=== PATIENT | male | born 1975 | race Caucasian/White ===

== ENCOUNTER 2019-02-06 00:33 | Emergency (ER) | payer SELFPAY ==
[2019-02-06] MEDS ORDERED: ASPIRIN 81 MG TABLET, CHEWABLE PO ONE (00:54)
--- NOTE | 2019-02-06 00:59 | ER Document Report ---
HPI - HPI Patient complains to provider of: chest pain Onset: Just prior to arrival Severity: Moderate Pain Level: 3 Context: 43-year-old morbidly obese middle-aged male with the listed past medical history here for multiple complaints to include bilateral lower extremity cramping, worse on the left side that started around 7 PM today. States he started with the cramping in his lower extremities and then he had some left-sided chest pain and cramping in his left arm. States he then felt briefly dizzy and nauseous and had a headache. He states the headache has since resolved and not returned. not worst temple of life. has had similar temple before in the past. denies sudden onset. He also had a cough for several days. He states his legs have also swollen for the last several days as well. He states the left leg is more swollen than right. No history of this before. No history of CHF. No dyspnea on exertion, orthopnea, or paroxysmal nocturnal dyspnea. He is not on any blood thinners. No fall or trauma. He is able to walk. He is not on any diuretics. 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 He is a smoker. Denies prior cardiac history. [facility]CP [facility] however he has not followed up with them yet and has an initial appointment in 6 days. He does see [facility] for his chronic low back pain left-sided sciatica. He also has chronic neuropathy which he takes baclofen and Neurontin for. He is on Percocet 10 mg 4 times daily. He states he still has these. He has never had this pain or symptoms before. He never had a stress test or heart catheterization. Pt denies any prior personal cardiac history. denies any family history of sudden or cardiac dz at a young age. no syncope. no palpitations. no hx of mi, cva, tia, CHF, or cad. no ripping or tearing sensation. No prior history of blood clots. No recent surgery, exogenous hormone use, hemoptysis, or history of cancer. No prior history of arrhythmias. he hasn't take anything for his sx. no other complaints at this time. - ROS Systems Reviewed and Negative: Yes All other systems reviewed and negative - To include 10 systems, unless mentioned in the hpi. <JAYCEE MICHAELS - Last Filed: 02/06/19 07:42> <RYAN MANN - Last Filed: 02/06/19 08:51> - HPI Time Seen by Provider: 02/06/19 00:52 Past Medical History - General Information source: Patient, Relative - Social History Smoking Status: Current Every Day Smoker Frequency of alcohol use: None Drug Abuse: None Lives with: Family Family History: Hypertension Patient has suicidal ideation: No Patient has homicidal ideation: No - Past Medical History Cardiac Medical History: Denies: Hx Atrial Fibrillation, Hx Congestive Heart Failure, Hx Coronary Artery Disease, Hx DVT, Hx Hypercholesterolemia, Hx Pulmonary Embolism Pulmonary Medical History: Denies: Hx Asthma, Hx Sleep Apnea Neurological Medical History: Denies: Hx Seizures Endocrine Medical History: Denies: Hx Diabetes Mellitus Type 1, Hx Diabetes Mellitus Type 2, Hx Hypothyroidism Renal/ Medical History: Reports: Hx Benign Prostatic Hyperplasia. Denies: Hx Kidney Stones Musculoskeletal Medical History: Reports Hx Arthritis, Reports Other - Chronic back pain on pain management - Immunizations Immunizations up to date: Yes <XENIAJAYCEE - Last Filed: 02/06/19 07:42> Vertical Provider Document - CONSTITUTIONAL Agree With Documented VS: Yes Exam Limitations: No Limitations General Appearance: No Apparent Distress Notes: >>>> PHYSICAL_EXAM: GENERAL_APPEARANCE: well_nourished, alert, cooperative, no_acute_distress, no_obvious_discomfort. pleasant, obese middle aged white male, smiling, speaking in full sentences, in no sign of pain or resp distress, smells strongly of cigarette smoke, at bedside VITALS: reviewed, see vital signs table. HEAD: no_swelling\tenderness on the head. normocephalic. atraumatic. no petit signs. no raccoons eyes. EYES: PERRL, EOMI, conjunctiva_clear. NOSE: no_nasal_discharge. MOUTH: (-)decreased moisture. THROAT: no_tonsilar_inflammation, no_airway_obstruction. no_lymphadenopathy NECK: supple, no_neck_tenderness, full rom. full strength. no meningeal signs. BACK: no midline back_tenderness. no step offs or deformities. CHEST_WALL: no_chest_tenderness. no overlying skin changes LUNGS: mild diffuse coarse breath sounds, worse mid-lower lung gallardo,(-)accessory muscle use, good air exchange bilateral. HEART: normal_rate, normal_rhythm, ABDOMEN: normal_BS, soft, no_abd_tenderness, (-)guarding, (-)rebound, no distension or peritoneal signs. no cva ttp EXTREMITIES: strength 5/5 in all_extremities, good pulses in all_extremities, no other swelling\tenderness in the extremities, pos 1+ pitting_edema bilat, L>R. full rom. normal gait. good pulses. brisk cap refill. 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 questionably positive Robyn sign on the left. neg robyn sign on the right. no sign of septic joint. no sign of gout. no overlying skin changes otherwise. NEURO: motor and sensation intact, cranial nerves 2-12 intact, cerebellar fxn intact SKIN: warm, dry, good_color, no_rash. MENTAL_STATUS: speech_clear, oriented_X_3, normal_affect, responds_appropriately to questions. - INFECTION CONTROL TRAVEL OUTSIDE OF THE [place] IN LAST 30 DAYS: No <JAYCEE MICHAELS - Last Filed: 02/06/19 07:42> Course - Re-evaluation Re-evalutation: 02/06/19 03:07 Pt here for some left-sided chest pain, bilateral leg cramping worse on the left along with bilateral leg swelling that is greater on the left. His labs were unremarkable other than a slightly elevated d-dimer and a mild leukocytosis. delta trop neg. ekg unremarkable per dr aquino. Chest x-ray showed some atelectasis but was otherwise negative for anything acute per radiology and reviewed by myself. His left knee x-ray showed some chronic arthritic changes but was otherwise negative for anything acute per radiology and reviewed by myself. He responded well to medications given. he is a chronic low back pain and sciatica pt on pain management but states these sx are different from his usual. He remained neuro nonfocal. No sign of cauda equina, spinal cord involvement, or central cord syndrome. Secondary to his d-dimer being elevated I did get a CTA of his chest which was negative per radiology and reviewed by myself. He was informed that the hospital only has a stage technician available to do Doppler ultrasounds starting at 7:30 AM. The patient did agree to stay until the tech could come in and perform an ultrasound of his legs since he does have asymmetric bilateral leg edema and an elevate d-dimer. Patient will be signed out to the oncoming [facility] at the end of my shift at 8am pending doppler US results for final dispo. Please refer to their note for final dispo after the patient undergoes his ultrasound to rule out DVT. vss. pt informed of findings. pt understands and agrees to plan. heart score is a: 2. On reexam, pt improved with tx listed. remained stable. nontoxic. well appearing. pain controlled. tolerating po. requesting to go home. neurononfocal. normal O2 sats on ra. lung sounds improved after tx here. case discussed with ER Attending, Dr. aquino, who directed and agrees with plan of care and advised no further workup indicated at this time and pt is stable for dc home with close f/u with pcp/specialist. Documentation achieved through voice recording which may lead to some occasional accidental typographical errors. Extensive efforts have been made to proof read documentation to make sure these are the least as possible. Category Date Time Status Doppler [VENOUS UNILATERAL LOWER] [CARDIO] Stat Cardiology 02/06/19 01:19 Ordered Continuous Cardiac Monitoring (ED) CONTINUOUS Care 02/06/19 00:54 Active EKG Documentation STAT Care 02/06/19 00:35 Completed Orthostatic Vital Sign (ED) NOW Care 02/06/19 01:19 Completed Oxygen (ED) Nasal Cannula 2 lpm Care 02/06/19 00:54 Active Pulse Oximeter Continuous (ED) CONTINUOUS Care 02/06/19 00:54 Active Saline Lock (ED) NOW Care 02/06/19 00:54 Active CHEST 2 VIEWS [RAD] Stat Exams 02/06/19 00:54 Completed CTA CHEST [CT] Stat Exams 02/06/19 03:00 Completed KNEE LEFT 4 VIEW [RAD] Stat Exams 02/06/19 01:20 Completed BNP (In-House) [NT PRO BNP] [CHEM] Stat Lab 02/06/19 00:55 Completed CBC WITH DIFF [HEME] Stat Lab 02/06/19 00:55 Completed COMPREHENSIVE METABOLIC PANEL [CHEM] Stat Lab 02/06/19 00:55 Completed CREATINE KINASE MB [CHEM] Stat Lab 02/06/19 00:55 Completed CREATINE KINASE [CHEM] Stat Lab 02/06/19 00:55 Completed D Dimer [D-DIMER] [COAG] Stat Lab 02/06/19 00:55 Completed MAGNESIUM [CHEM] Stat Lab 02/06/19 00:55 Completed PROTHROMBIN TIME/INR [COAG] Stat Lab 02/06/19 00:55 Completed TROPONIN I [CHEM] Stat Lab 02/06/19 00:55 Completed TROPONIN I [CHEM] Stat Lab 02/06/19 05:00 Completed UA [URINALYSIS] [URIN] Stat Lab 02/06/19 02:25 Completed Aspirin [Aspirin 81 mg Chewable Tablet] Med 02/06/19 00:54 Discontinued 324 mg PO NOW ONE Baclofen [Baclofen 10 mg Tablet] Med 02/06/19 06:50 Once 10 mg PO NOW ONE Ipratropium/Albuterol Sulfate [Duoneb 3 ml Ampul] Med 02/06/19 01:19 Discontinued 3 ml NEB NOW ONE Ketorolac Tromethamine [Toradol Inj/Pf 30 mg/1 ml Sdv] Med 02/06/19 06:27 Stop Req 30 mg IV NOW ONE Oxycodone HCl [Oxy-Ir 5 mg Tablet] Med 02/06/19 06:49 Once 10 mg PO NOW ONE EKG ER ONLY [ER] Stat Oth 02/06/19 Active Nebulizer Therapy Routine [RESPCARE] NOW Ther 02/06/19 01:19 Active 02/06/19 06:51 02/06/19 06:54 02/06/19 06:56 02/06/19 06:58 02/06/19 07:42 - Vital Signs Vital signs: 02/06/19 03:07 Pulse Pulse Pulse Resp BP BP BP 02/06/19 02:25 126/84 H 02/06/19 02:24 16 02/06/19 02:01 17 145/95 H 02/06/19 02:00 18 02/06/19 01:37 69 80 69 140/88 H 131/96 H 02/06/19 01:36 21 H 131/96 H 02/06/19 01:35 13 02/06/19 01:34 17 140/88 H 02/06/19 01:33 14 02/06/19 01:32 16 139/89 H 02/06/19 01:31 21 H 02/06/19 01:19 16 02/06/19 01:01 17 144/93 H 02/06/19 01:00 18 02/06/19 00:52 11 L 134/87 H 02/06/19 00:51 10 L BP Pulse Ox 02/06/19 02:25 94 02/06/19 02:24 94 02/06/19 02:01 91 L 02/06/19 02:00 92 02/06/19 01:37 139/89 H 02/06/19 01:36 96 02/06/19 01:35 97 02/06/19 01:34 97 02/06/19 01:33 98 02/06/19 01:32 96 02/06/19 01:31 97 02/06/19 01:19 96 02/06/19 01:01 95 02/06/19 01:00 95 02/06/19 00:52 96 02/06/19 00:51 97 - Laboratory Result Diagrams: 02/06/19 00:55 02/06/19 00:55 Laboratory results interpreted by me: 02/06/19 03:02 Labs- Entire Visit 02/06/19 02/06/19 02/06/19 00:55 00:55 00:55 WBC 12.2 H RBC 5.06 Hgb 15.6 Hct 45.2 MCV 90 MCH 30.9 MCHC 34.5 RDW 12.7 Plt Count 219 Lymph % (Auto) 15.9 Coke % (Auto) 5.6 Eos % (Auto) 1.9 Baso % (Auto) 0.3 Absolute Neuts (auto) 9.3 H Absolute Lymphs (auto) 1.9 Absolute Monos (auto) 0.7 Absolute Eos (auto) 0.2 Absolute Basos (auto) 0.0 Seg Neutrophils % 76.3 PT 13.2 INR 1.00 D-Dimer Sodium 135.4 L Potassium 4.0 Chloride 100 Carbon Dioxide 27 Anion Gap 8 BUN 12 Creatinine 1.18 Est GFR ( Amer) > 60 Est GFR (MDRD) Non-Af > 60 Glucose 92 Calcium 8.9 Magnesium Total Bilirubin 0.7 Direct Bilirubin 0.1 Neonat Total Bilirubin Not Reportable Neonat Direct Bilirubin Not Reportable Neonat Indirect Bili Not Reportable AST 29 ALT 24 Alkaline Phosphatase 75 Creatine Kinase 171 H CK-MB (CK-2) Troponin I NT-Pro-B Natriuret Pep Total Protein 6.4 Albumin 4.0 Urine Color Urine Appearance Urine pH Ur Specific [place] Urine Protein Urine Glucose (UA) Urine Ketones Urine Blood Urine Nitrite Urine Bilirubin Urine Urobilinogen Ur Leukocyte Esterase Urine WBC (Auto) Urine RBC (Auto) Urine Ascorbic Acid 02/06/19 02/06/19 02/06/19 00:55 00:55 00:55 WBC RBC Hgb Hct MCV MCH MCHC RDW Plt Count Lymph % (Auto) Coke % (Auto) Eos % (Auto) Baso % (Auto) Absolute Neuts (auto) Absolute Lymphs (auto) Absolute Monos (auto) Absolute Eos (auto) Absolute Basos (auto) Seg Neutrophils % PT INR D-Dimer Sodium Potassium Chloride Carbon Dioxide Anion Gap BUN Creatinine Est GFR ( Amer) Est GFR (MDRD) Non-Af Glucose Calcium Magnesium 2.0 Total Bilirubin Direct Bilirubin Neonat Total Bilirubin Neonat Direct Bilirubin Neonat Indirect Bili AST ALT Alkaline Phosphatase Creatine Kinase CK-MB (CK-2) 1.75 Troponin I < 0.012 NT-Pro-B Natriuret Pep 65 Total Protein Albumin Urine Color Urine Appearance Urine pH Ur Specific [place] Urine Protein Urine Glucose (UA) Urine Ketones Urine Blood Urine Nitrite Urine Bilirubin Urine Urobilinogen Ur Leukocyte Esterase Urine WBC (Auto) Urine RBC (Auto) Urine Ascorbic Acid 02/06/19 02/06/19 00:55 02:25 WBC RBC Hgb Hct MCV MCH MCHC RDW Plt Count Lymph % (Auto) Coke % (Auto) Eos % (Auto) Baso % (Auto) Absolute Neuts (auto) Absolute Lymphs (auto) Absolute Monos (auto) Absolute Eos (auto) Absolute Basos (auto) Seg Neutrophils % PT INR D-Dimer 0.78 H Sodium Potassium Chloride Carbon Dioxide Anion Gap BUN Creatinine Est GFR ( Amer) Est GFR (MDRD) Non-Af Glucose Calcium Magnesium Total Bilirubin Direct Bilirubin Neonat Total Bilirubin Neonat Direct Bilirubin Neonat Indirect Bili AST ALT Alkaline Phosphatase Creatine Kinase CK-MB (CK-2) Troponin I NT-Pro-B Natriuret Pep Total Protein Albumin Urine Color YELLOW Urine Appearance CLEAR Urine pH 6.0 Ur Specific [place] 1.008 Urine Protein NEGATIVE Urine Glucose (UA) NEGATIVE Urine Ketones NEGATIVE Urine Blood NEGATIVE Urine Nitrite NEGATIVE Urine Bilirubin NEGATIVE Urine Urobilinogen NEGATIVE Ur Leukocyte Esterase NEGATIVE Urine WBC (Auto) 1 Urine RBC (Auto) 1 Urine Ascorbic Acid NEGATIVE - Diagnostic Test Radiology reviewed: Image reviewed, Reports reviewed Radiology results interpreted by me: 02/06/19 03:02 Chest X-Ray 02/06/19 00:54 IMPRESSION: Mild patchy perihilar and left basilar opacification likely due to atelectasis. Inflammatory changes are not entirely excluded. Knee X-Ray 02/06/19 01:20 IMPRESSION: Osteopenia with degenerative change copyright 2010 [employer]- All Rights Reserved Chest/Abdomen CTA 02/06/19 03:00 IMPRESSION: No acute intrathoracic process TECHNICAL DOCUMENTATION: Quality ID # 436: Final reports with documentation of one or more dose reduction techniques (e.g., Automated exposure control, adjustment of the mA and/or kV according to patient size, use of iterative reconstruction technique) copyright 2010 [employer]- All Rights Reserved 02/06/19 06:58 - EKG Interpretation by Me EKG shows normal: Sinus rhythm Rate: Normal Heart block present: 1st Degree - 71 bpm, no stemi, reviewed by dr aquino When compared to previous EKG there are: Previous EKG unavailable <JAYCEE MICHAELS - Last Filed: 02/06/19 07:42> - Re-evaluation Re-evalutation: 02/06/19 08:04 Received report from KATELYN Manley. Will await ultrasound results. Patient is complaining of a headache. 975 mg of Tylenol has been ordered. 02/06/19 08:20 The time the nurse informed me that the patient would like to leave AGAINST MEDICAL ADVICE. As I was talking to the patient, ultrasound came to bedside and the patient had decided to stay. I told him that I can get his discharge paperwork done and call him with the results. 02/06/19 08:50 Patient's unofficial venous Doppler study is negative at this time. The patient will be discharged at this time. [facility] will [facility] with [facility]. Follow-up precautions were given. Verbal discharge instructions were given to the patient. They verbalized understanding. They are stable for discharge. - Vital Signs Vital signs: Temp Pulse Resp BP Pulse Ox 69 26 H 139/91 H 96 02/06/19 01:37 02/06/19 07:01 02/06/19 07:01 02/06/19 07:01 - Laboratory Result Diagrams: 02/06/19 00:55 02/06/19 00:55 Laboratory results interpreted by me: 02/06/19 02/06/19 02/06/19 00:55 00:55 00:55 WBC 12.2 H Absolute Neuts (auto) 9.3 H D-Dimer 0.78 H Sodium 135.4 L Creatine Kinase 171 H <RYAN MANN - Last Filed: 02/06/19 08:51> Discharge <JAYCEE MICHAELS - Last Filed: 02/06/19 07:42> <RYAN MANN - Last Filed: 02/06/19 08:51> - Discharge Clinical Impression: Peripheral edema, Elevated d-dimer, Tobacco abuse Chest pain Qualifiers: Chest pain type: unspecified Qualified Code(s): R07.9 - Chest pain, unspecified Leukocytosis Qualifiers: Leukocytosis type: unspecified Qualified Code(s): D72.829 - Elevated white blood cell count, unspecified Condition: Good Disposition: HOME, SELF-CARE Additional Instructions: You were seen today in the emergency department for chest pain. You will be called with your ultrasound results. Your other diagnostic studies were normal. Please follow-up with your primary care provider in regards to this visit. If you have worsening chest pain, shortness of breath, difficulty breathing, please return to the emergency department. Forms: Return to Work Referrals: [facility] [Provider Group] - Follow up in 3-5 days
[2019-02-06 01:13] LABS: ABSOLUTE EOSINOPHILS # (AUTO) 0.2 10^3/uL (0.0-0.6); ABSOLUTE LYMPHOCYTES (AUTO) 1.9 10^3/uL (0.5-4.7); ABSOLUTE MONOCYTES (AUTO) 0.7 10^3/uL (0.1-1.4); ABSOLUTE NEUT (AUTO) 9.3 10^3/uL (1.7-8.2); BASOPHILS % (AUTO) 0.3 % (0-2); EOSINOPHILS % (AUTO) 1.9 % (0-6); HEMATOCRIT 45.2 % (37.9-51.0); HEMOGLOBIN 15.6 g/dL (13.5-17.0); LYMPHOCYTES % (AUTO) 15.9 % (13-45); MEAN CORPUSCULAR HEMOGLOBIN 30.9 pg (27.0-33.4); MEAN CORPUSCULAR HGB CONC 34.5 g/dL (32.0-36.0); MEAN CORPUSCULAR VOLUME 90 fl (80-97); MONOCYTES % (AUTO) 5.6 % (3-13); PLATELET COUNT 219 10^3/uL (150-450); RED BLOOD COUNT 5.06 10^6/uL (4.35-5.55); RED CELL DISTRIBUTION WIDTH 12.7 % (11.5-14.0); SEGMENTED NEUTROPHILS % (AUTO) 76.3 % (42-78); TOTAL CELLS COUNTED % (AUTO) 100 %; WHITE BLOOD COUNT 12.2 10^3/uL (4.0-10.5)
[2019-02-06 01:16] LABS: PROTHROMBIN TIME 13.2 SEC (11.4-15.4)
[2019-02-06] MEDS ORDERED: IPRATROPIUM/ALBUTEROL 0.5-2.5 MG/3 ML AMPUL NEB ONE (01:19)
[2019-02-06 01:32] LABS: ALKALINE PHOSPHATASE 75 U/L (38-126); ANION GAP 8 (5-19); ASPARTATE AMINO TRANSFERASE 29 U/L (17-59); BILIRUBIN,DIRECT 0.1 mg/dL (0.0-0.4); BILIRUBIN,TOTAL 0.7 mg/dL (0.2-1.3); BLOOD UREA NITROGEN 12 mg/dL (7-20); CALCIUM 8.9 mg/dL (8.4-10.2); CARBON DIOXIDE 27 mmol/L (22-30); CHLORIDE 100 mmol/L (98-107); CREATINE KINASE 171 U/L (55-170); GLUCOSE 92 mg/dL (75-110); TOTAL PROTEIN 6.4 g/dL (6.3-8.2)
[2019-02-06 02:01] LABS: CREATINE KINASE MB 1.75 ng/mL (<4.55)
[2019-02-06 02:02] LABS: TROPONIN I < 0.012 ng/mL
--- NOTE | 2019-02-06 02:41 | RADIOLOGY REPORT (SQ) ---
EXAM DESCRIPTION: X-ray two view chest. CLINICAL HISTORY: 43 years Male, chest pain COMPARISON: None. TECHNIQUE: PA and Lateral views of the chest performed on 02/06/2019 at 2:32 AM FINDINGS: The lungs are relatively well expanded. There is mild patchy perihilar and left basilar opacification which may be due to atelectasis or inflammatory changes. The costophrenic sulci are clear. There is no evidence of a pneumothorax. The cardiac silhouette is normal in size. The mediastinal contours are normal. No acute osseous abnormalities are identified. No focal soft tissue abnormalities are identified. IMPRESSION: Mild patchy perihilar and left basilar opacification likely due to atelectasis. Inflammatory changes are not entirely excluded.
[2019-02-06 02:47] LABS: APPEARANCE,URINE CLEAR; BILIRUBIN,URINE NEGATIVE (NEGATIVE); COLOR,URINE YELLOW; GLUCOSE, URINE NEGATIVE (NEGATIVE); KETONES,URINE NEGATIVE (NEGATIVE); LEUKOCYTE ESTERASE,URINE NEGATIVE (NEGATIVE); NITRITE,URINE NEGATIVE (NEGATIVE); PROTEIN,URINE NEGATIVE (NEGATIVE); URINE SPECIFIC GRAVITY 1.008; UROBILINOGEN,URINE NEGATIVE mg/dL (<2.0)
--- NOTE | 2019-02-06 03:10 | RADIOLOGY REPORT (SQ) ---
EXAM DESCRIPTION: XR KNEE 4 OR MORE VIEWS COMPLETED DATE/TME: 02/06/2019 01:20 CLINICAL HISTORY: 43 years, Male, left knee pain COMPARISON: None. NUMBER OF VIEWS: 4 TECHNIQUE: 4 views left knee LIMITATIONS: None. FINDINGS: Osteopenia. Negative for acute fracture or dislocation. Tricompartmental degenerative change with tricompartmental narrowing and spur formation. Soft tissues are unremarkable IMPRESSION: Osteopenia with degenerative change copyright 2010 [employer]- All Rights Reserved
--- NOTE | 2019-02-06 04:14 | RADIOLOGY REPORT (SQ) ---
EXAM DESCRIPTION: CT CHEST ANGIOGRAPHY WITHOUT THEN WITH IV CONTRAST COMPLETED DATE/TME: 02/06/2019 03:00 CLINICAL HISTORY: 43 years, Male, cp, sob, edema, elevated d dimer(0.78) COMPARISON: None. TECHNIQUE: 667 Images stored on PACS. All CT scanners at this facility use dose modulation, iterative reconstruction, and/or weight based dosing when appropriate to reduce radiation dose to as low as reasonably achievable (ALARA). Axial images with coronal and sagittal MIPS [facility]: Dose Right [facility]: CareDose [facility]: Dose Right [facility]: Teradose 4D [facility]: [employer] LIMITATIONS: None. FINDINGS: The mediastinal vasculature enhances normally. No intraluminal filling defect to suggest pulmonary embolus. Negative for thoracic aortic aneurysm or dissection. The heart and pericardium are unremarkable. Limited evaluation of the upper abdomen shows a 4 x 2.8 cm cyst in the right hepatic lobe. Osseous structures are grossly intact. No pneumothorax. Airways are patent. Lungs are clear IMPRESSION: No acute intrathoracic process TECHNICAL DOCUMENTATION: Quality ID # 436: Final reports with documentation of one or more dose reduction techniques (e.g., Automated exposure control, adjustment of the mA and/or kV according to patient size, use of iterative reconstruction technique) copyright 2010 [employer] All Rights Reserved
[2019-02-06] MEDS ORDERED: KETOROLAC TROMETHAMINE INJ/PF 30 MG/1 ML SDV IV ONE (06:27)
[2019-02-06] MEDS ORDERED: OXYCODONE HCL IR 5 MG TABLET PO ONE (06:49)
[2019-02-06] MEDS ORDERED: BACLOFEN 10 MG TABLET PO ONE (06:50)
--- NOTE | 2019-02-06 07:18 | EKG REPORT ---
SEVERITY:- ABNORMAL ECG - SINUS RHYTHM FIRST DEGREE AV BLOCK : Confirmed by: Ger Castro MD 06-Feb-2019 07:17:32
[2019-02-06] MEDS ORDERED: ACETAMINOPHEN 325 MG TABLET PO ONE (08:00)
[2019-02-06 08:51] VITALS: BP 142/99
--- NOTE | 2019-02-06 09:41 | RADIOLOGY REPORT (SQ) ---
EXAM DESCRIPTION: VENOUS UNILATERAL LOWER COMPLETED DATE/TIME: 02/06/2019 9:30 am REASON FOR STUDY: left calf pain/swelling COMPARISON: None. TECHNIQUE: Dynamic and static baker scale and color images acquired of the left leg venous system. Se lected spectral images acquired with additional compression and augmentation maneuvers. The contralat eral common femoral vein and saphenofemoral junction were also imaged. Images stored on PACS. LIMITATIONS: None. FINDINGS: COMMON FEMORAL: Normal phasicity, compression and augmentation. No visualized echogenic ma terial on baker scale. No defects on color images. FEMORAL: Normal compression and augmentation. No visualized echogenic material on baker scale. No defe cts on color images. POPLITEAL: Normal compression, augmentation. No visualized echogenic material on baker scale. No defec ts on color images. CALF VESSELS: Normal compression, augmentation. No visualized echogenic material on baker scale. No de fects on color images. GSV and SSV: Normal compression, augmentation. No visualized echogenic material on baker scale. No def ects on color images. ANY DEEP VENOUS INSUFFICIENCY: Not evaluated. ANY EVIDENCE OF POPLITEAL CYST: No. OTHER: No other significant finding. CONTRALATERAL COMMON FEMORAL VEIN AND SAPHENOFEMORAL JUNCTION: Normal phasicity, compression and augmentation. No visualized echogenic material on baker scale. No de fects on color images. IMPRESSION: No evidence of DVT or SVT within the left lower extremity. TECHNICAL DOCUMENTATION: JOB ID: [id number] [employer]- All Rights Reserved Reading location - IP/workstation name: [email or web address]
== END 2019-02-06 08:51 | disposition home or self-care (01) ==
LOC: ER 00:33
DX: R07.9 Chest pain, unspecified (principal); D72.829 Elevated white blood cell count, unspecified; R60.0 Localized edema; R79.1 Abnormal coagulation profile; R25.2 Cramp and spasm; E66.01 Morbid (severe) obesity due to excess calories; R42 Dizziness and giddiness; R11.0 Nausea; Z79.899 Other long term (current) drug therapy; F17.200 Nicotine dependence, unspecified, uncomplicated
CPT/HCPCS: 93005; 36415; 82553; 82550; 83735; 85025; 85610; 80053; 81001; 84484; 85379; 83880; 93971; 71046; 73564; 71275; 93010; J7620; 94640; 99283

== ENCOUNTER → 2019-03-28 | Outpatient (CLI) | payer MEDICAID ==
--- NOTE | 2019-03-28 14:28 | RADIOLOGY REPORT (SQ) ---
EXAM DESCRIPTION: CHEST PA/LATERAL COMPLETED DATE/TIME: 03/28/2019 12:56 pm REASON FOR STUDY: COUGH COMPARISON: 02/06/2019 EXAM PARAMETERS: NUMBER OF VIEWS: two views TECHNIQUE: Digital Frontal and Lateral radiographic views of the chest acquired. RADIATION DOSE: NA LIMITATIONS: none FINDINGS: LUNGS AND PLEURA: No opacities, masses or pneumothorax. No pleural effusion. MEDIASTINUM AND HILAR STRUCTURES: No masses or contour abnormalities. HEART AND VASCULAR STRUCTURES: Heart normal size. No evidence for failure. BONES: No acute findings. HARDWARE: None in the chest. OTHER: No other significant finding. IMPRESSION: NO SIGNIFICANT RADIOGRAPHIC FINDING IN THE CHEST. TECHNICAL DOCUMENTATION: JOB ID: [id number] [employer]- All Rights Reserved Reading location - IP/workstation name: [email or web address]
== END ==
LOC: OD 12:35
PROVIDERS: ATTEND Nurse Practitioner Family
DX: R05 Cough (principal)
CPT/HCPCS: 71046

== ENCOUNTER 2019-04-16 14:33 | Emergency (ER) | payer MEDICAID ==
--- NOTE | 2019-04-16 14:42 | ER Document Report ---
ED Medical Screen (RME) - General Chief Complaint: Flank Pain Stated Complaint: FLANK PAIN Time Seen by Provider: 04/16/19 14:39 Primary Care Provider: KYLIE WALKER NP [Primary Care Provider] - Follow up as needed Mode of Arrival: Ambulatory Information source: Patient Notes: 43-year-old male presented to ED for complaint of right flank pain since last night. He states he has been having very frequent urination since Monday. He states he just urinated about 30 minutes ago and he needs to go again already. He does have a history of kidney stones and last one was 2016. He states he feels like somebody is kicked him in both kidneys at this time. States she smokes between 10 to 14 cigarettes a day denies alcohol or drugs. Pressure is 142/86. He states he does not have a history of blood pressure problems. TRAVEL OUTSIDE OF THE [place] IN LAST 30 DAYS: No - Related Data Allergies/Adverse Reactions: No Known Allergies Allergy (Verified 04/16/19 14:38) Past Medical History - Past Medical History Cardiac Medical History: Denies: Hx Atrial Fibrillation, Hx Congestive Heart Failure, Hx Coronary Artery Disease, Hx DVT, Hx Hypercholesterolemia, Hx Pulmonary Embolism Pulmonary Medical History: Denies: Hx Asthma, Hx Sleep Apnea Neurological Medical History: Denies: Hx Seizures Endocrine Medical History: Denies: Hx Diabetes Mellitus Type 1, Hx Diabetes Mellitus Type 2, Hx Hypothyroidism Renal/ Medical History: Reports: Hx Benign Prostatic Hyperplasia. Denies: Hx Kidney Stones Musculoskeltal Medical History: Reports Hx Arthritis - Immunizations Immunizations up to date: Yes Doctor's Discharge - Discharge Referrals: KYLIE WALKER NP [Primary Care Provider] - Follow up as needed
[2019-04-16] MEDS ORDERED: KETOROLAC TROMETHAMINE 60 MG/2 ML SDV IM ONE (14:43)
[2019-04-16 15:16] LABS: APPEARANCE,URINE CLEAR; BILIRUBIN,URINE NEGATIVE (NEGATIVE); COLOR,URINE YELLOW; GLUCOSE, URINE NEGATIVE (NEGATIVE); KETONES,URINE NEGATIVE (NEGATIVE); PROTEIN,URINE NEGATIVE (NEGATIVE); URINE SPECIFIC GRAVITY 1.013; UROBILINOGEN,URINE NEGATIVE mg/dL (<2.0)
[2019-04-16 15:18] LABS: ABSOLUTE BASOPHILS # (AUTO) 0.1 10^3/uL (0.0-0.2); ABSOLUTE EOSINOPHILS # (AUTO) 0.4 10^3/uL (0.0-0.6); ABSOLUTE LYMPHOCYTES (AUTO) 1.6 10^3/uL (0.5-4.7); ABSOLUTE MONOCYTES (AUTO) 0.6 10^3/uL (0.1-1.4); ABSOLUTE NEUT (AUTO) 7.8 10^3/uL (1.7-8.2); BASOPHILS % (AUTO) 0.9 % (0-2); EOSINOPHILS % (AUTO) 3.4 % (0-6); HEMATOCRIT 52.5 % (37.9-51.0); HEMOGLOBIN 17.9 g/dL (13.5-17.0); LYMPHOCYTES % (AUTO) 15.6 % (13-45); MEAN CORPUSCULAR HEMOGLOBIN 30.9 pg (27.0-33.4); MEAN CORPUSCULAR HGB CONC 34.1 g/dL (32.0-36.0); MEAN CORPUSCULAR VOLUME 91 fl (80-97); MONOCYTES % (AUTO) 5.9 % (3-13); PLATELET COUNT 221 10^3/uL (150-450); RED BLOOD COUNT 5.79 10^6/uL (4.35-5.55); SEGMENTED NEUTROPHILS % (AUTO) 74.2 % (42-78); TOTAL CELLS COUNTED % (AUTO) 100 %; WHITE BLOOD COUNT 10.5 10^3/uL (4.0-10.5)
[2019-04-16 15:30] LABS: ALKALINE PHOSPHATASE 77 U/L (38-126); ANION GAP 7 (5-19); ASPARTATE AMINO TRANSFERASE 26 U/L (17-59); BILIRUBIN,DIRECT 0.1 mg/dL (0.0-0.4); BILIRUBIN,TOTAL 0.7 mg/dL (0.2-1.3); BLOOD UREA NITROGEN 15 mg/dL (7-20); CALCIUM 9.2 mg/dL (8.4-10.2); CARBON DIOXIDE 30 mmol/L (22-30); CHLORIDE 103 mmol/L (98-107); GLUCOSE 82 mg/dL (75-110); POTASSIUM 4.4 mmol/L (3.6-5.0); TOTAL PROTEIN 6.5 g/dL (6.3-8.2)
--- NOTE | 2019-04-16 15:57 | RADIOLOGY REPORT (SQ) ---
EXAM DESCRIPTION: U/S RETROPERITON (RENAL/AORTA) COMPLETED DATE/TIME: 04/16/2019 3:46 pm REASON FOR STUDY: Right flank pain COMPARISON: 02/06/2019. TECHNIQUE: Dynamic and static grayscale images acquired of the kidneys and bladder and recorded on P ACS. Additional selected color Doppler and spectral images recorded. LIMITATIONS: None. FINDINGS: RIGHT KIDNEY: Normal size measuring 11.7 cm. Normal echogenicity. No solid or suspicious m asses. No hydronephrosis. No calcifications. LEFT KIDNEY: Normal size measuring 11.7 cm. Normal echogenicity. No solid or suspicious masses. Mil d fullness of the renal pelvis. No caliceal dilation. 1.3 cm lower pole cyst. Hydronephrosis. No c alcifications. BLADDER: Decompressed. Incompletely evaluated. OTHER FINDINGS: 2.7 cm right hepatic lobe cyst. IMPRESSION: 1. No evidence of hydronephrosis. 2. Small hepatic and left renal cyst. TECHNICAL DOCUMENTATION: JOB ID: [id number] [employer]- All Rights Reserved Reading location - IP/workstation name: [email or web address]
[2019-04-16] MEDS ORDERED: NORMAL SALINE 1000 ML 1,000 ML IV ONE (16:22)
[2019-04-16] MEDS ORDERED: FENTANYL CITRATE INJ/PF 100 MCG/2 ML AMPUL IV ONE (17:27)
--- NOTE | 2019-04-16 17:41 | RADIOLOGY REPORT (SQ) ---
EXAM DESCRIPTION: CT ABD/PELVIS WITH IV ONLY COMPLETED DATE/TIME: 04/16/2019 5:21 pm REASON FOR STUDY: LLQ pain, eval for diverticulitis COMPARISON: CT angio chest 02/06/2019 TECHNIQUE: CT scan of the abdomen and pelvis performed using helical scanning technique with dynamic intravenous contrast injection. No oral contrast. Images reviewed with lung, soft tissue, and bone windows. Reconstructed coronal and sagittal MPR images reviewed. Delayed images for evaluation of the urinary system also acquired. All images stored on PACS. All CT scanners at this facility use dose modulation, iterative reconstruction, and/or weight based d osing when appropriate to reduce radiation dose to as low as reasonably achievable (ALARA). [facility]: Dose Right [facility]: CareDose [facility]: Dose Right [facility]: Teradose 4D [facility]: [employer] CONTRAST TYPE AND DOSE: contrast/concentration: Isovue 350.00 mg/ml; Total Contrast Delivered: 100.0 ml; Total Saline Delivered: 72.0 ml RENAL FUNCTION: Creatinine 0.9 RADIATION DOSE: CT Rad equipment meets quality standard of care and radiation dose reduction techniq ues were employed. CTDIvol: NaN mGy. DLP: 0 mGy-cm.. LIMITATIONS: None. FINDINGS: LOWER CHEST: No significant findings. No nodules or infiltrates. LIVER: Normal size. No masses. No dilated ducts. Benign 3 cm cyst posterior right lobe liver SPLEEN: Normal size. No focal lesions. PANCREAS: No masses. No significant calcifications. No adjacent inflammation or peripancreatic fluid collections. Pancreatic duct not dilated. GALLBLADDER: No identified stones by CT criteria. No inflammatory changes to suggest cholecystitis. ADRENAL GLANDS: No significant masses or asymmetry. RIGHT KIDNEY AND URETER: No solid masses. No significant calcifications. No hydronephrosis or hyd roureter. LEFT KIDNEY AND URETER: No solid masses. 2 cm and 1 cm left midpole renal cortical cyst. No signif icant calcifications. No hydronephrosis or hydroureter. AORTA AND VESSELS: No aneurysm. No dissection. Renal arteries, SMA, celiac without stenosis. RETROPERITONEUM: No retroperitoneal adenopathy, hemorrhage or masses. BOWEL AND PERITONEAL CAVITY: No oral contrast. Scattered colonic diverticuli without CT signs of acu te diverticulitis. In particular, no left lower quadrant inflammatory changes are seen in the ramona lic fat. No CT evidence of bowel obstruction or free intraperitoneal air or fluid. Few jejunal dive rticuli are present without inflammation. APPENDIX: Surgically absent PELVIS: No mass. No free fluid. Normal bladder. ABDOMINAL WALL: No masses. No hernias. BONES: No significant or acute findings. OTHER: No other significant finding. IMPRESSION: Post appendectomy. Colonic and jejunal diverticuli are present without CT signs of inflammation TECHNICAL DOCUMENTATION: JOB ID: [id number] Quality ID # [id number]: Final reports with documentation of one or more dose reduction techniques (e.g., Au tomated exposure control, adjustment of the mA and/or kV according to patient size, use of iterative reconstruction technique) 2010 [employer]- All Rights Reserved Reading location - IP/workstation name: [email or web address]
[2019-04-16] MEDS ORDERED: CIPROFLOXACIN HCL 500 MG TABLET PO ONE (18:28)
[2019-04-16] MEDS ORDERED: METRONIDAZOLE 500 MG TABLET PO ONE (18:28)
[2019-04-16] MEDS ORDERED: HYDROCODONE/ACETAMINOPHEN 5-325 MG (6 TAB/ER DISP) PO PRN (19:14)
[2019-04-16] MEDS ORDERED: ONDANSETRON ODT 4 MG TAB (6 TAB/ER DISP) PO PRN (19:24)
--- NOTE | 2019-04-16 19:31 | ER Document Report ---
Entered by GOLD FAGAN SCRIBE 04/16/19 1616 Acting as scribe for:RYAN HARDIN DO ED GI/ - General Chief Complaint: Flank Pain Stated Complaint: FLANK PAIN Time Seen by Provider: 04/16/19 14:39 Primary Care Provider: KYLIE WALKER NP [Primary Care Provider] - Follow up as needed Mode of Arrival: Ambulatory Information source: Patient Notes: This 43-year-old male patient presents to the emergency department today with complaints of left flank pain with associated left sided abdominal pain, nausea, vomiting, diarrhea, chills, and urinary frequency for the last few days. Patient states he has a history of kidney stones and his symptoms today feel somewhat similar to his previous kidney stones although the worst pain today is in his left lower quadrant which is not like previous kidney stones. Patient states he was treated for a urinary tract infection about 6 months ago at [facility]. Patient mentions that he has a cough but states this has been chronic for the last month and a half. Pertinent PMHx/PSHx: Kidney stones, urinary tract infection - additional PMHx/PSHx not pertinent to this visit as recorded. PCP: Followed by urology at [facility] TRAVEL OUTSIDE OF THE [place] IN LAST 30 DAYS: No - Related Data Allergies/Adverse Reactions: No Known Allergies Allergy (Verified 04/16/19 14:38) Home Medications: gabapentin, oxycodone, baclofen, nexium Past Medical History - General Information source: Patient - Social History Smoking Status: Current Every Day Smoker Cigarette use (# per day): Yes Chew tobacco use (# tins/day): No Frequency of alcohol use: None Drug Abuse: None Lives with: Family Family History: Reviewed & Not Pertinent, Hypertension Patient has suicidal ideation: No Patient has homicidal ideation: No Renal/ Medical History: Reports: Hx Benign Prostatic Hyperplasia, Hx Kidney Stones Musculoskeletal Medical History: Reports Hx Arthritis - Immunizations Immunizations up to date: Yes Review of Systems - Review of Systems Constitutional: See HPI, Chills. denies: Fever EENT: No symptoms reported Cardiovascular: No symptoms reported Respiratory: No symptoms reported Gastrointestinal: See HPI, Abdominal pain, Diarrhea, Nausea, Vomiting Genitourinary: See HPI, Flank pain Male Genitourinary: No symptoms reported Musculoskeletal: No symptoms reported Skin: No symptoms reported Hematologic/Lymphatic: No symptoms reported Neurological/Psychological: No symptoms reported -: Yes All other systems reviewed and negative Physical Exam - Vital signs Vitals: Temp Pulse Resp BP Pulse Ox 98.2 F 84 16 142/86 H 98 04/16/19 14:40 04/16/19 14:40 04/16/19 14:40 04/16/19 14:40 04/16/19 14:40 Course - Vital Signs Vital signs: Temp Pulse Resp BP Pulse Ox 97.8 F 76 20 152/98 H 98 04/16/19 18:07 04/16/19 18:07 04/16/19 18:07 04/16/19 18:07 04/16/19 14:40 - Laboratory Result Diagrams: 04/16/19 14:53 04/16/19 14:53 Laboratory results interpreted by me: 04/16/19 04/16/19 14:53 14:53 RBC 5.79 H Hgb 17.9 H Hct 52.5 H Urine Ascorbic Acid 20 H Discharge - Discharge Clinical Impression: Abdominal pain, Vomiting Condition: Stable Disposition: HOME, SELF-CARE Instructions: Abdominal Pain ([facility]), Vomiting ([facility]), Diverticulitis ([facility]), Low Residue Diet ([facility]) Prescriptions: Ondansetron [Zofran Odt 4 mg Tablet] 1 tab PO Q6HP PRN #15 tab.rapdis PRN Reason: For Nausea/Vomiting Ciprofloxacin HCl [Cipro 500 mg Tablet] 500 mg PO BID #20 tablet Metronidazole [Flagyl 500 mg Tablet] 500 mg PO Q8H #30 tablet Metoclopramide HCl [Reglan 10 mg Tablet] 1 - 2 tab PO ASDIR PRN #25 tablet PRN Reason: Referrals: KYLIE WALKER, CROSSING SUPERVISOR [Primary Care Provider] - Follow up in 3-5 days I personally performed the services described in the documentation, reviewed and edited the documentation which was dictated to the scribe in my presence, and it accurately records my words and actions.
[2019-04-16 20:02] VITALS: BP 145/82
== END 2019-04-16 20:08 | disposition home or self-care (01) ==
LOC: ER 14:33
DX: R10.9 Unspecified abdominal pain (principal); R11.2 Nausea with vomiting, unspecified; R19.7 Diarrhea, unspecified; F17.210 Nicotine dependence, cigarettes, uncomplicated; Z87.442 Personal history of urinary calculi
CPT/HCPCS: 99284; 96372; 96361; 96374; 36415; 83690; 85025; 80053; 81001; 76770; 74177; J3490 ×2; J1885; J3010; J7030

== ENCOUNTER 2019-04-23 21:40 | Emergency (ER) | payer MEDICAID ==
[2019-04-23 22:02] VITALS: BP 134/75
[2019-04-23] MEDS ORDERED: IBUPROFEN 600 MG TABLET PO ONE (22:49)
--- NOTE | 2019-04-23 22:50 | ER Document Report ---
ED Medical Screen (RME) - General Chief Complaint: Fall Stated Complaint: LEFT ARM PAIN Time Seen by Provider: 04/23/19 22:45 Primary Care Provider: KYLIE WALKER NP [Primary Care Provider] - Follow up as needed Notes: Patient is a 43-year-old male who presents emergency department with a chief complaint of left shoulder pain. Patient had lost his balance he was moving a chair and ended up falling on his left shoulder. Patient states that this happened this afternoon. He has not taken any medications to help with the pain. He normally takes oxycodone for chronic back pain. Exam: Edema noted to left posterior shoulder. Tenderness noted to the area. I have greeted and performed a rapid initial assessment of this patient. A comprehensive ED assessment and evaluation of the patient, analysis of test resu lts and completion of medical decision making process will be conducted by an additional ED providers. TRAVEL OUTSIDE OF THE [place] IN LAST 30 DAYS: No - Related Data Allergies/Adverse Reactions: No Known Allergies Allergy (Verified 04/16/19 14:38) Home Medications: neurontin, baclofen, oxycodone, nexium Past Medical History - Social History Frequency of alcohol use: None Drug Abuse: None - Past Medical History Cardiac Medical History: Denies: Hx Atrial Fibrillation, Hx Congestive Heart Failure, Hx Coronary Artery Disease, Hx DVT, Hx Hypercholesterolemia, Hx Pulmonary Embolism Pulmonary Medical History: Denies: Hx Asthma, Hx Sleep Apnea Neurological Medical History: Denies: Hx Seizures Endocrine Medical History: Denies: Hx Diabetes Mellitus Type 1, Hx Diabetes Mellitus Type 2, Hx Hypothyroidism Renal/ Medical History: Reports: Hx Benign Prostatic Hyperplasia, Hx Kidney Stones Musculoskeltal Medical History: Reports Hx Arthritis - Immunizations Immunizations up to date: Yes Physical Exam - Vital signs Vitals: Temp Pulse Resp BP Pulse Ox 98.2 F 70 18 134/75 H 97 04/23/19 22:01 04/23/19 22:01 04/23/19 22:01 04/23/19 22:01 04/23/19 22:01 Course - Vital Signs Vital signs: Temp Pulse Resp BP Pulse Ox 98.2 F 70 18 134/75 H 97 04/23/19 22:39 04/23/19 22:39 04/23/19 22:39 04/23/19 22:39 04/23/19 22:39 Doctor's Discharge - Discharge Referrals: KYLIE WALKER MANAGER OF ORGANIZATIONAL DEVELOPMENT [Primary Care Provider] - Follow up as needed
--- NOTE | 2019-04-23 23:22 | RADIOLOGY REPORT (SQ) ---
EXAM DESCRIPTION: XR SHOULDER 2 OR MORE VIEWS COMPLETED DATE/TME: 04/23/2019 22:45 CLINICAL HISTORY: 43 years, Male, bone tenderness after fall COMPARISON: None. NUMBER OF VIEWS: Three TECHNIQUE: Internal/external and transscapular Y projections were acquired. LIMITATIONS: None. FINDINGS: Visualized osseous structures are normal in appearance. Joint spaces are well-maintained. No acute fracture or dislocation is evident. IMPRESSION: No acute osseous anomaly. copyright 2010 [employer]- All Rights Reserved
== END 2019-04-24 04:53 | disposition left against medical advice (07) ==
LOC: ER 21:40
DX: M25.512 Pain in left shoulder (principal); M79.605 Pain in left leg; Z87.442 Personal history of urinary calculi
CPT/HCPCS: 73030; J3490; 99281

== ENCOUNTER 2019-05-21 04:08 | Emergency (ER) | payer MEDICAID ==
[2019-05-21 04:36] VITALS: BP 136/83
[2019-05-21 05:43] LABS: ABSOLUTE EOSINOPHILS # (AUTO) 0.2 10^3/uL (0.0-0.6); ABSOLUTE LYMPHOCYTES (AUTO) 1.7 10^3/uL (0.5-4.7); ABSOLUTE MONOCYTES (AUTO) 0.5 10^3/uL (0.1-1.4); ABSOLUTE NEUT (AUTO) 7.1 10^3/uL (1.7-8.2); BASOPHILS % (AUTO) 0.5 % (0-2); EOSINOPHILS % (AUTO) 2.5 % (0-6); HEMATOCRIT 49.9 % (37.9-51.0); HEMOGLOBIN 17.3 g/dL (13.5-17.0); LYMPHOCYTES % (AUTO) 17.9 % (13-45); MEAN CORPUSCULAR HEMOGLOBIN 31.2 pg (27.0-33.4); MEAN CORPUSCULAR HGB CONC 34.7 g/dL (32.0-36.0); MEAN CORPUSCULAR VOLUME 90 fl (80-97); MONOCYTES % (AUTO) 5.6 % (3-13); PLATELET COUNT 226 10^3/uL (150-450); RED BLOOD COUNT 5.56 10^6/uL (4.35-5.55); RED CELL DISTRIBUTION WIDTH 12.8 % (11.5-14.0); SEGMENTED NEUTROPHILS % (AUTO) 73.5 % (42-78); TOTAL CELLS COUNTED % (AUTO) 100 %; WHITE BLOOD COUNT 9.7 10^3/uL (4.0-10.5)
[2019-05-21 05:57] LABS: ALBUMIN 3.5 g/dL (3.5-5.0); ALKALINE PHOSPHATASE 62 U/L (38-126); ANION GAP 10 (5-19); ASPARTATE AMINO TRANSFERASE 27 U/L (17-59); BILIRUBIN,DIRECT 0.2 mg/dL (0.0-0.4); BILIRUBIN,TOTAL 0.3 mg/dL (0.2-1.3); BLOOD UREA NITROGEN 13 mg/dL (7-20); CALCIUM 8.8 mg/dL (8.4-10.2); CARBON DIOXIDE 26 mmol/L (22-30); CHLORIDE 108 mmol/L (98-107); GLUCOSE 99 mg/dL (75-110); POTASSIUM 3.9 mmol/L (3.6-5.0); TOTAL PROTEIN 5.8 g/dL (6.3-8.2)
[2019-05-21 06:09] LABS: CREATINE KINASE MB 1.47 ng/mL (<4.55); NT PRO BNP 35 pg/mL (<125); TROPONIN I < 0.012 ng/mL
--- NOTE | 2019-05-21 07:14 | RADIOLOGY REPORT (SQ) ---
Chest single view on 05/21/2019 at 5:33 AM CLINICAL INDICATION: Cough COMPARISON: 03/28/2019 FINDINGS: The lungs are clear. Cardiac, hilar and mediastinal contours are within normal limits. Pulmonary vascularity is within normal limits. No bony abnormality is noted. IMPRESSION: No active disease.
--- NOTE | 2019-05-21 13:46 | EKG REPORT ---
SEVERITY:- NORMAL ECG - SINUS RHYTHM : Confirmed by: Ger Castro MD 21-May-2019 13:45:30
== END 2019-05-21 07:15 | disposition left against medical advice (07) ==
LOC: ER 04:08
DX: Z53.21 Procedure and treatment not carried out due to patient leaving prior to being seen by health care provider (principal); R06.02 Shortness of breath; R07.9 Chest pain, unspecified
CPT/HCPCS: 36415; 71045; 80053; 82553; 83880; 84484; 85025; 93005; 93010; 99281

== ENCOUNTER 2019-07-16 15:20 | Emergency (ER) | payer MEDICAID ==
--- NOTE | 2019-07-16 15:31 | ER Document Report ---
ED Medical Screen (RME) - General Chief Complaint: Altered Mental Status Stated Complaint: FALL -OVER PAIN/SLURRED SPEECH Time Seen by Provider: 07/16/19 15:26 Primary Care Provider: CASSY CAN PA-C [Primary Care Provider] - Follow up as needed Mode of Arrival: Wheelchair Information source: Relative Notes: 44-year-old male was at home walking down the ramp when he slipped and fell. states he he has severe back pain and she thinks she slipped he slipped on some allergy but since that time he is slowly regressed to he has slurred speech now he does not know who he is aware he is. He is not able to move himself from the car to the wheelchair. It took multiple people to get him into the chair. He states he has passed out 4 times since he fell. He is not controlling his arms or legs at this time. When he does speak it is very slurred. He is not following orders at this time he can hear me he does answer some questions when I asked him that he know where he was he stated no. I have greeted and performed a rapid initial assessment of this patient. A comprehensive ED assessment and evaluation of the patient, analysis of test results and completion of medical decision making process will be conducted by an additional ED providers. TRAVEL OUTSIDE OF THE [place] IN LAST 30 DAYS: No - Related Data Allergies/Adverse Reactions: No Known Allergies Allergy (Verified 05/21/19 04:31) Past Medical History - Past Medical History Cardiac Medical History: Denies: Hx Atrial Fibrillation, Hx Congestive Heart Failure, Hx Coronary Artery Disease, Hx DVT, Hx Hypercholesterolemia, Hx Pulmonary Embolism Pulmonary Medical History: Denies: Hx Asthma, Hx Sleep Apnea Neurological Medical History: Denies: Hx Seizures Endocrine Medical History: Denies: Hx Diabetes Mellitus Type 1, Hx Diabetes Mellitus Type 2, Hx Hypothyroidism Renal/ Medical History: Reports: Hx Benign Prostatic Hyperplasia, Hx Kidney St ones Musculoskeltal Medical History: Reports Hx Arthritis - Immunizations Immunizations up to date: Yes Physical Exam - Vital signs Vitals: Temp Pulse Resp BP Pulse Ox 97.5 F 94 18 154/88 H 100 07/16/19 15:23 07/16/19 15:23 07/16/19 15:23 07/16/19 15:23 07/16/19 15:23 Course - Vital Signs Vital signs: Temp Pulse Resp BP Pulse Ox 97.5 F 94 18 154/88 H 100 07/16/19 15:23 07/16/19 15:23 07/16/19 15:23 07/16/19 15:23 07/16/19 15:23 Doctor's Discharge - Discharge Referrals: CASSY CAN, RONNIE [Primary Care Provider] - Follow up as needed
[2019-07-16] MEDS ORDERED: HYDROMORPHONE HCL INJ/PF 2 MG/ML AMPULE IV ONE (15:54)
[2019-07-16] MEDS ORDERED: ONDANSETRON HCL INJ/PF 4 MG/2 ML SDV IV ONE (15:55)
--- NOTE | 2019-07-16 15:55 | RADIOLOGY REPORT (SQ) ---
EXAM DESCRIPTION: CT HEAD WITHOUT COMPLETED DATE/TIME: 07/16/2019 3:36 pm REASON FOR STUDY: Stroke alert COMPARISON: None. TECHNIQUE: Axial images acquired through the brain without intravenous contrast. Images reviewed wit h bone, brain and subdural windows. Images stored on PACS. All CT scanners at this facility use dose modulation, iterative reconstruction, and/or weight based d osing when appropriate to reduce radiation dose to as low as reasonably achievable (ALARA). [facility]: Dose Right [facility]: CareDose [facility]: Dose Right [facility]: Teradose 4D [facility]: [employer] RADIATION DOSE: . LIMITATIONS: None. FINDINGS: VENTRICLES: Normal size and contour. CEREBRUM: No masses. No hemorrhage. No midline shift. Age appropriate white matter. No evidence for a cute infarction. CEREBELLUM: No masses. No hemorrhage. No alteration of density. No evidence for acute infarction. EXTRA-AXIAL SPACES: No fluid collections. ORBITS AND GLOBE: No intra- or extraconal masses. Normal contour of globe without masses. CALVARIUM: No fracture. PARANASAL SINUSES: No fluid or mucosal thickening. SOFT TISSUES: No mass or hematoma. OTHER: No other significant finding. IMPRESSION: NO ACUTE INTRACRANIAL FINDINGS. EVIDENCE OF ACUTE STROKE: NO. COMMENT: The findings were sent to the Radiology Results Communication Center at 15:48 on 07/16/2019 to be communicated to a licensed caregiver. TECHNICAL DOCUMENTATION: JOB ID: [id number] Quality ID # 436: Final reports with documentation of one or more dose reduction techniques (e.g., Au tomated exposure control, adjustment of the mA and/or kV according to patient size, use of iterative reconstruction technique) 2010 [employer]- All Rights Reserved Reading location - IP/workstation name: [email or web address]
--- NOTE | 2019-07-16 16:01 | ER Document Report ---
ED General - General Chief Complaint: Altered Mental Status Stated Complaint: FALL -OVER PAIN/SLURRED SPEECH Time Seen by Provider: 07/16/19 15:26 Primary Care Provider: CASSY CAN PA-C [Primary Care Provider] - Follow up as needed Mode of Arrival: Wheelchair TRAVEL OUTSIDE OF THE [place] IN LAST 30 DAYS: No - HPI Notes: Patient is a 44-year-old male with a history of chronic neck and back issues, acid reflux, who presents to the emergency department for evaluation. He was walking down the back steps, outdoors, and there algae covered. He slipped and fell backwards. He did hit his head. He did not lose consciousness. He complains of pain in his head and his lower back. This was witnessed by his . He was able to get up under his own power, they got into the car to head to the hospital. In route, the patient was tearful. He started to have difficulty moving his arms, complained of numbness in his hands and arms, around his mouth. According to he was having trouble speaking. He has brought here for further evaluation. Patient complains of pain in his neck and his back. He is actually scheduled for a cervical spine decompression surgery on August 01. - Related Data Allergies/Adverse Reactions: No Known Allergies Allergy (Verified 05/21/19 04:31) Home Medications: Baclofen, Neurontin, Nexium Past Medical History - General Information source: Patient, Relative - Social History Smoking Status: Unknown if Ever Smoked Family History: Reviewed & Not Pertinent, DM, Hypertension Patient has suicidal ideation: No Patient has homicidal ideation: No - Past Medical History Cardiac Medical History: Denies: Hx Atrial Fibrillation, Hx Congestive Heart Failure, Hx Coronary Artery Disease, Hx DVT, Hx Hypercholesterolemia, Hx Pulmonary Embolism Pulmonary Medical History: Denies: Hx Asthma, Hx Sleep Apnea Neurological Medical History: Reports: Other - History of TIA. Denies: Hx Seizures Endocrine Medical History: Denies: Hx Diabetes Mellitus Type 1, Hx Diabetes Mellitus Type 2, Hx Hypothyroidism Renal/ Medical History: Reports: Hx Benign Prostatic Hyperplasia, Hx Kidney Stones GI Medical History: Reports: Hx Gastroesophageal Reflux Disease Musculoskeletal Medical History: Reports Hx Arthritis - Immunizations Immunizations up to date: Yes Review of Systems - Review of Systems Musculoskeletal: See HPI Neurological/Psychological: See HPI Physical Exam - Vital signs Vitals: Temp Pulse Resp BP Pulse Ox 97.5 F 94 18 154/88 H 100 07/16/19 15:23 07/16/19 15:23 07/16/19 15:23 07/16/19 15:23 07/16/19 15:23 - Notes Notes: This is a 44-year-old male who appears stated age in a moderate amount of distress. He is very anxious, tearful, and intermittently hyperventilating. Vital signs reviewed, please refer to chart. Head is normocephalic, atraumatic. Pupils equal round, reactive to light. Neck is supple without meningismus. Heart is regular rate and rhythm. Lungs are clear to auscultation bilaterally. Abdomen is soft, nontender, normoactive bowel sounds throughout. Extremities without cyanosis, clubbing. Posterior calves are nontender. Peripheral pulses are equal. Skin is warm and dry. Patient is awake, alert, oriented x3. Cranial nerves II - XII are grossly intact without focal neurological deficits. Strength is plus 5 out of 5 bilateral upper extremities. Strength sensation difficult to test in the lower extremities secondary to back pain. Sensation is intact. Reflexes symmetrical. Intact [id number], rapid alternating movements, [id number]. Course - Re-evaluation Re-evalutation: 07/16/19 16:00 Patient presents to the emergency department for evaluation. He was initially seen by provider and a stroke alert was called. On my initial exam, I cannot find any focal neurological deficits. My strong suspicion is that of hyperventilation, causing perioral and bilateral upper extremity numbness. He states that all the symptoms are improving. I will treat his back pain with Dilaudid. We will continue to monitor. 07/16/19 17:49 Went back in to see patient, he was having back spasms. He was administered Valium. Went back in to see him again. Complete neurological exam was reperformed and found to be unremarkable. He just complains of pain in his back. He states that he had been on Dilaudid in the past, did not help as much as the hydrocodone. We will give him 10 mg of hydrocodone, 30 mg of IV Toradol, and reassess. 07/16/19 19:50 Patient is feeling significantly improved after hydrocodone and Toradol. I will send him home with a sixpack of hydrocodone from here. He is to follow-up with his primary care provider, return to the ED with worsening or new concerning symptoms of any sort. - Vital Signs Vital signs: Temp Pulse Resp BP Pulse Ox 98.2 F 71 14 124/66 95 07/16/19 16:01 07/16/19 15:31 07/16/19 19:01 07/16/19 19:01 07/16/19 19:01 - Laboratory Result Diagrams: 07/16/19 15:48 07/16/19 15:48 Laboratory results interpreted by me: 07/16/19 07/16/19 15:48 15:48 WBC 10.7 H RBC 5.95 H Hgb 19.1 H Hct 53.4 H Total Protein 6.2 L - EKG Interpretation by Me Additional EKG results interpreted by me: 07/16/19 16:01 Sinus mechanism with a rate of 80 bpm. Normal axis and intervals. No acute ST changes concerning for ischemia or infarction. Discharge - Discharge Clinical Impression: Fall (on) (from) other stairs and steps, initial encounter, Hyperventilation syndrome Lumbosacral injury Qualifiers: Encounter type: initial encounter Qualified Code(s): S39.92XA - Unspecified injury of lower back, initial encounter Condition: Stable Disposition: HOME, SELF-CARE Instructions: Hyperventilation ([facility]), Low Back Pain ([facility]) Additional Instructions: Please follow-up with primary care and neurosurgery this week. Take [place] as needed for severe pain. Watch for dizziness, drowsiness, constipation with this medication. Continue your regular medications as prescribed. If you develop worsening or new concerning symptoms of any sort, please return immediately to the emergency department for evaluation. Referrals: CASSY CAN PA-C [Primary Care Provider] - Follow up as needed
[2019-07-16 16:07] LABS: ABSOLUTE BASOPHILS # (AUTO) 0.1 10^3/uL (0.0-0.2); ABSOLUTE EOSINOPHILS # (AUTO) 0.2 10^3/uL (0.0-0.6); ABSOLUTE LYMPHOCYTES (AUTO) 2.7 10^3/uL (0.5-4.7); ABSOLUTE MONOCYTES (AUTO) 0.6 10^3/uL (0.1-1.4); ABSOLUTE NEUT (AUTO) 7.1 10^3/uL (1.7-8.2); EOSINOPHILS % (AUTO) 1.9 % (0-6); HEMATOCRIT 53.4 % (37.9-51.0); HEMOGLOBIN 19.1 g/dL (13.5-17.0); LYMPHOCYTES % (AUTO) 25.3 % (13-45); MEAN CORPUSCULAR HGB CONC 35.7 g/dL (32.0-36.0); MEAN CORPUSCULAR VOLUME 90 fl (80-97); PLATELET COUNT 235 10^3/uL (150-450); RED BLOOD COUNT 5.95 10^6/uL (4.35-5.55); RED CELL DISTRIBUTION WIDTH 12.7 % (11.5-14.0); SEGMENTED NEUTROPHILS % (AUTO) 65.8 % (42-78); TOTAL CELLS COUNTED % (AUTO) 100 %; WHITE BLOOD COUNT 10.7 10^3/uL (4.0-10.5)
--- NOTE | 2019-07-16 16:07 | RADIOLOGY REPORT (SQ) ---
EXAM DESCRIPTION: CT LUMBAR SPINE WITHOUT COMPLETED DATE/TIME: 07/16/2019 3:36 pm REASON FOR STUDY: severe pain fall COMPARISON: None. TECHNIQUE: Axial images acquired through the lumbar spine without intravenous contrast. Images revi ewed with lung, soft tissue and bone windows. Reconstructed coronal and sagittal MPR images reviewed . All images stored on PACS. All CT scanners at this facility use dose modulation, iterative reconstruction, and/or weight based d osing when appropriate to reduce radiation dose to as low as reasonably achievable (ALARA). [facility]: Dose Right [facility]: CareDose [facility]: Dose Right [facility]: Teradose 4D [facility]: [employer] RADIATION DOSE: mGy. LIMITATIONS: None. FINDINGS: SEGMENTATION: Normal. No transitional anatomy. ALIGNMENT: Normal. VERTEBRAL BODIES: No fractures. No dislocation. No acute findings. DISCS: Disc space narrowing in the lower lumbar spine. Vacuum change at L3-L4 and L5-S1. Posterior disc and osteophyte at L3-L4. Study limited by lack of intrathecal contrast. PEDICLES, TRANSVERSE PROCESSES: No fractures. No dislocation. No acute findings. FACETS, POSTERIOR ELEMENTS: No fractures. No dislocation. Lower lumbar facet arthropathy. HARDWARE: None in the spine. VISUALIZED RIBS: No fractures. SOFT TISSUES: No significant or acute finding in adjacent soft tissues. OTHER: Cyst in the posterior right lobe of the liver, not completely imaged. Unchanged from prior ab dominal CT (04/16/2019). A few tiny punctate calculi in the kidneys. IMPRESSION: DEGENERATIVE CHANGES IN THE LUMBAR SPINE. NO APPARENT ACUTE FINDINGS. OTHER INCIDENTAL FINDINGS ABOVE. TECHNICAL DOCUMENTATION: JOB ID: [id number] Quality ID # 436: Final reports with documentation of one or more dose reduction techniques (e.g., Au tomated exposure control, adjustment of the mA and/or kV according to patient size, use of iterative reconstruction technique) 2010 [employer]- All Rights Reserved Reading location - IP/workstation name: [email or web address]
--- NOTE | 2019-07-16 16:10 | RADIOLOGY REPORT (SQ) ---
EXAM DESCRIPTION: CHEST SINGLE VIEW COMPLETED DATE/TIME: 07/16/2019 3:40 pm REASON FOR STUDY: Stroke alert COMPARISON: 05/21/2019 TECHNIQUE: Single frontal radiographic view of the chest acquired. NUMBER OF VIEWS: One view. LIMITATIONS: None. FINDINGS: LUNGS AND PLEURA: No pneumothorax. No consolidation or pleural effusion. MEDIASTINUM AND HILAR STRUCTURES: Stable. HEART AND VASCULAR STRUCTURES: Stable. BONES: No acute findings. HARDWARE: None in the chest. OTHER: No other significant finding. IMPRESSION: NO ACUTE FINDINGS. TECHNICAL DOCUMENTATION: JOB ID: [id number] [place]-72 2010 [employer]- All Rights Reserved Reading location - IP/workstation name: [employer]
[2019-07-16 16:12] LABS: INTERNATIONAL RATION (INR) 0.94; PROTHROMBIN TIME 12.6 SEC (11.4-15.4)
[2019-07-16 16:13] LABS: PARTIAL THROMBOPLASTIN TIME 26.3 SEC (23.5-35.8)
[2019-07-16 16:22] LABS: ALBUMIN 3.9 g/dL (3.5-5.0); ALKALINE PHOSPHATASE 78 U/L (38-126); ANION GAP 11 (5-19); ASPARTATE AMINO TRANSFERASE 26 U/L (17-59); BILIRUBIN,TOTAL 0.6 mg/dL (0.2-1.3); BLOOD UREA NITROGEN 11 mg/dL (7-20); CALCIUM 9.2 mg/dL (8.4-10.2); CARBON DIOXIDE 23 mmol/L (22-30); CHLORIDE 104 mmol/L (98-107); CREATINE KINASE 106 U/L (55-170); GLUCOSE 82 mg/dL (75-110); POTASSIUM 3.8 mmol/L (3.6-5.0); TOTAL PROTEIN 6.2 g/dL (6.3-8.2)
[2019-07-16 16:30] LABS: CREATINE KINASE MB 1.24 ng/mL (<4.55)
[2019-07-16 16:34] LABS: TROPONIN I < 0.012 ng/mL
[2019-07-16] MEDS ORDERED: DIAZEPAM INJ 10 MG/2 ML DISP.SYRIN IV ONE (16:49)
--- NOTE | 2019-07-16 17:04 | EKG REPORT ---
SEVERITY:- NORMAL ECG - SINUS RHYTHM : Confirmed by: Melida Bae MD 16-Jul-2019 17:04:05
[2019-07-16] MEDS ORDERED: HYDROCODONE/ACETAMINOPHEN 10-325 MG TABLET PO ONE (17:48)
[2019-07-16] MEDS ORDERED: KETOROLAC TROMETHAMINE INJ/PF 30 MG/1 ML SDV IV ONE (17:48)
[2019-07-16] MEDS ORDERED: HYDROCODONE/ACETAMINOPHEN 5-325 MG (6 TAB/ER DISP) PO PRN (19:49)
[2019-07-16 20:39] VITALS: BP 141/80
== END 2019-07-16 20:39 | disposition home or self-care (01) ==
LOC: ER 15:20
DX: S39.92XA Unspecified injury of lower back, initial encounter (principal); R41.82 Altered mental status, unspecified; R47.81 Slurred speech; F45.8 Other somatoform disorders; W01.0XXA Fall on same level from slipping, tripping and stumbling without subsequent striking against object, initial encounter
CPT/HCPCS: 93005; 99284; 96374; 96375; 36415; 82553; 82962; 82550; 85025; 85610; 85730; 80053; 84484; 71045; 70450; 72131; 93010; J3360; J1885; J1170; J2405

== ENCOUNTER 2019-08-11 20:42 | Emergency (ER) | payer MEDICAID ==
[2019-08-11 20:49] VITALS: BP 131/86
[2019-08-11] MEDS ORDERED: OXYCODONE-ACETAMINOPHEN 5-325 MG TABLET PO ONE (20:57)
[2019-08-11] MEDS ORDERED: DEXAMETHASONE 4 MG TABLET PO ONE (20:57)
--- NOTE | 2019-08-11 20:59 | ER Document Report ---
ED Medical Screen (RME) - General TRAVEL OUTSIDE OF THE [place] IN LAST 30 DAYS: No - General Chief Complaint: Neck Pain >24hrs old Stated Complaint: NECK PAIN POST 1 WEEK BRANDT Time Seen by Provider: 08/11/19 20:53 Primary Care Provider: CASSY CAN PA-C [ALLIED HEALTH PROFESSIONAL] - Follow up as needed Notes: HPI: 44-year-old male 8 days post C4-5, C6, C7 surgery in [place] presenting for increasing neck pain tonight. Was in the shower, went to reach for something and felt something "pop" in the area of the surgery, complains of increasing pain and burning sensation around the wound area. No bleeding. Patient states that he normally has weakness in the left arm related to the bulging disks which is why he had the surgery. Reports some burning sensation through the bilateral trapezius region I have greeted and performed a rapid initial assessment of this patient. A comprehensive ED assessment and evaluation of the patient, analysis of test results and completion of the medical decision making process will be conducted by additional ED providers PHYSICAL EXAMINATION: Surgical wound on the lower cervical spine appears intact, no visible redness, no visible discharge or bleeding. Sensation is intact in bilateral upper extremities. Patient with some difficulty elevating the bilateral arms up but states this is normal still for him (EMANUEL GRUBER) - Related Data Allergies/Adverse Reactions: No Known Allergies Allergy (Verified 08/11/19 20:53) Past Medical History - Past Medical History Cardiac Medical History: Denies: Hx Atrial Fibrillation, Hx Congestive Heart Failure, Hx Coronary Artery Disease, Hx DVT, Hx Hypercholesterolemia, Hx Pulmonary Embolism Pulmonary Medical History: Denies: Hx Asthma, Hx Sleep Apnea Neurological Medical History: Denies: Hx Seizures Endocrine Medical History: Denies: Hx Diabetes Mellitus Type 1, Hx Diabetes Mellitus Type 2, Hx Hypothyroidism Renal/ Medical History: Reports: Hx Benign Prostatic Hyperplasia, Hx Kidney Stones GI Medical History: Reports: Hx Gastroesophageal Reflux Disease Musculoskeltal Medical History: Reports Hx Arthritis - Immunizations Immunizations up to date: Yes Physical Exam - Vital signs Vitals: Temp Pulse Resp BP Pulse Ox 97.9 F 85 20 131/86 H 98 08/11/19 20:47 08/11/19 20:47 08/11/19 20:47 08/11/19 20:47 03/22/20 20:47 Course - Re-evaluation Re-evalutation: 08/12/19 00:07 (DONNY JOSHUA IV) - Vital Signs Vital signs: Temp Pulse Resp BP Pulse Ox 97.9 F 85 20 131/86 H 98 08/11/19 20:47 08/11/19 20:47 08/11/19 20:47 08/11/19 20:47 08/11/19 20:47 Doctor's Discharge - Discharge Referrals: CASSY CAN, CONNIEC [ALLIED HEALTH PROFESSIONAL] - Follow up as needed
--- NOTE | 2019-08-11 21:41 | RADIOLOGY REPORT (SQ) ---
EXAM DESCRIPTION: CT scan of the cervical spine without contrast CLINICAL HISTORY: 44 years Male; neck pain s/p cervical surgery 1 wk ago TECHNIQUE: Noncontrast cervical spine CT with sagittal and coronal reconstructions. All CT scans at this facility use dose modulation, iterative reconstruction, and/or weight based dosing when appropriate to reduce radiation dose to as low as reasonably achievable. COMPARISON: None FINDINGS: General: Cervical spine is visualized from the skull base through T1 . There is mild curvature of the cervical spine convex left which may be positional. Alignment of the spine on the lateral view is anatomic. No listhesis. There is mild disc height narrowing in the lower cervical spine. There is soft tissue edema present in the posterior aspect of the spine beginning at C4-5 and extending through C6. No focal fluid collections are noted. No air is seen in the soft tissues posteriorly. No osseous abnormality. C6-7 there is a left paracentral bony bar and probable left neural foraminal narrowing. A small pocket of air is seen inferior to the facets on the left at C6. Lung apices are clear. No significant lymphadenopathy in the neck. IMPRESSION: Postsurgical change in the soft tissues posterior to the neck most pronounced at the C5-6 level. No air is identified in the soft tissues to suggest abscess. If there is a high clinical concern for an epidural or intradural process then MRI without and with gadolinium is recommended.
--- NOTE | 2019-08-12 00:09 | ER Document Report ---
Entered by GIOVANI ALLEN SCRIBE 08/11/19 [id number] Acting as scribe for:DONNY JOSHUA IV, MD ED Neck/Back Problem - General Chief Complaint: Neck Problem Stated Complaint: NECK PAIN POST 1 WEEK BRANDT Time Seen by Provider: 08/11/19 20:53 Primary Care Provider: CASSY CAN PA-C [ALLIED HEALTH PROFESSIONAL] - Follow up as needed Mode of Arrival: Ambulatory Information source: Patient Notes: This 44 year old male patient, x8 days post C4-7 surgery presents to the ED today with complaints of neck pain that started prior to arrival. Patient states that after reaching for his body wash in the shower, he felt a sudden sharp pooping sensation in the center of his neck. Patient reports that the pain radiated to his head, ear, and down the back of his left arm. Patient also reports a tingling sensation in digits 1-3 on his left hand. Patient notes that he spoke with the surgeon who stated that the continued numbness and tingling down his LUE is abnormal and advised him to come to the ED. Patient notes that he ran out of his pain medications x3 days ago. TRAVEL OUTSIDE OF THE [place] IN LAST 30 DAYS: No - Related Data Allergies/Adverse Reactions: No Known Allergies Allergy (Verified 08/11/19 20:53) Past Medical History - General Information source: Patient, [facility] Records - Social History Smoking Status: Current Every Day Smoker Cigarette use (# per day): Yes Chew tobacco use (# tins/day): No Smoking Education Provided: No Frequency of alcohol use: None Drug Abuse: None Family History: Reviewed & Not Pertinent, DM, Hypertension Patient has suicidal ideation: No Patient has homicidal ideation: No Renal/ Medical History: Reports: Hx Benign Prostatic Hyperplasia, Hx Kidney Stones GI Medical History: Reports: Hx Gastroesophageal Reflux Disease Musculoskeletal Medical History: Reports Hx Arthritis - Immunizations Immunizations up to date: Yes Review of Systems - Review of Systems Constitutional: No symptoms reported EENT: No symptoms reported Cardiovascular: No symptoms reported Respiratory: No symptoms reported Gastrointestinal: No symptoms reported Genitourinary: No symptoms reported Male Genitourinary: No symptoms reported Musculoskeletal: See HPI, Neck pain, Other - Numbness/tingling to LUE and fingers Skin: No symptoms reported Hematologic/Lymphatic: No symptoms reported Neurological/Psychological: No symptoms reported -: Yes All other systems reviewed and negative Physical Exam - Vital signs Vitals: Temp Pulse Resp BP Pulse Ox 97.9 F 85 20 131/86 H 98 08/11/19 20:47 08/11/19 20:47 08/11/19 20:47 08/11/19 20:47 08/11/19 20:47 - General General appearance: Alert - HEENT Head: Normocephalic, Atraumatic Eyes: Normal Pupils: PERRL Neck: Other - 4 cm surgical incision posterior neck; minimal redness - Respiratory Respiratory status: No respiratory distress Chest status: Nontender Breath sounds: Normal Chest palpation: Normal - Cardiovascular Rhythm: Regular Heart sounds: Normal auscultation Murmur: No Friction rub: No Gallop: None auscultated - Abdominal Inspection: Normal Distension: No distension Bowel sounds: Normal Tenderness: Nontender - Abdomen soft Organomegaly: No organomegaly - Back Back: Normal, Nontender - Extremities General upper extremity: Normal inspection General lower extremity: Normal inspection - Neurological Neuro grossly intact: Yes - Psychological Associated symptoms: Normal affect, Normal mood - Skin Skin Temperature: Warm Skin Moisture: Dry Skin Color: Normal Course - Re-evaluation Re-evalutation: 08/11/19 23:[address] scan discussed with patient patient was informed that this MD reviewed the patient's opioid prescriptions filled on the [place] controlled substance database. The patient had filled 120 tablets of 10 mg oxycodone on 07/30/2019 and then another 28 tablets of 5 mg oxycodone on 08/02/2019. Patient said he was out of pain medication. This MD said he was going to contact the patient's surgeon about the results of the CAT scan and c onsult him in terms of plan of care. After this MD stepped out of the room patient was noted by 1 of the TICK INSPECTOR's to get up and leave. Patient stated that he would just see the surgeon. When the TICK INSPECTOR asked if the patient had his discharge paperwork, the patient stated "I don't need that shit." - Vital Signs Vital signs: Temp Pulse Resp BP Pulse Ox 97.9 F 85 20 131/86 H 98 08/11/19 20:47 08/11/19 20:47 08/11/19 20:47 08/11/19 20:47 08/11/19 20:47 - Diagnostic Test Radiology reviewed: Reports reviewed Discharge - Discharge Clinical Impression: Neck pain with history of cervical spinal surgery Disposition: AGAINST MEDICAL ADVICE Referrals: CASSY CAN PA-C [ALLIED HEALTH PROFESSIONAL] - Follow up as needed I personally performed the services described in the documentation, reviewed and edited the documentation which was dictated to the scribe in my presence, and it accurately records my words and actions.
== END 2019-08-12 00:07 | disposition left against medical advice (07) ==
LOC: ER 20:42
DX: M54.2 Cervicalgia (principal); Z98.890 Other specified postprocedural states; R20.2 Paresthesia of skin; R20.0 Anesthesia of skin; F17.210 Nicotine dependence, cigarettes, uncomplicated; Z53.20 Procedure and treatment not carried out because of patient's decision for unspecified reasons
CPT/HCPCS: 99283; 72125; J3490; J8540